=== PATIENT | male | born 1955 | race Asian ===

== ENCOUNTER 2020-02-29 11:31 | Emergency (ER) | payer MEDICAID ==
[~2020-02-29] VITALS: Ht 177.8 cm; Wt 72.6 kg
[2020-02-29 11:31] VITALS: BP 121/76
--- NOTE | 2020-02-29 11:31 | NUR ---
ED Nurse Note: Pt BRICE [id number] from home c/o dizziness onset this AM. Per EMS, pt feels everything around him is moving/ spinning. Pt has hx of vertigo. AAOx4, verbally responsive. No SOB. ERMD at bedside.
[2020-02-29] MEDS ORDERED: Meclizine 25mg tab ORAL ONE (11:45)
--- NOTE | 2020-02-29 11:55 | Emergency Room Report ---
History of Present Illness General Chief Complaint: Dizziness Source: Patient, EMS (Shyam Marcus MD) Present Illness HPI 64-year-old male history of hypertension hyperlipidemia presents with intermittent signs and symptoms of vertigo ongoing for the past few weeks, acutely worsened over the past 3 days, patient every time he tilts his head starts feeling dizzy and feels violent it acutely worsened this morning, endorses some nausea no chest pain no weakness no facial droop no shortness of breath no fevers no chills patient presents for evaluation and treatment he states staying still helps with the vertigo and dizziness, but movement of the h ead can exacerbate it severity is moderate, intermittent (Shyam Marcus MD) Allergies: Coded Allergies: No Known Allergies (Unverified , 02/29/20) COVID-19 Screening Contact w/high risk pt: No Experienced COVID-19 symptoms?: No COVID-19 Testing performed HOT MOLDER: No (Shyam Marcus MD) Patient History Past Medical History: see triage record Reviewed Nursing Documentation: PMH: Agreed; PSxH: Agreed (Shyam Marcus MD) Nursing Documentation-PMH Hx Hypertension: Yes - VERTIGO Hx Diabetes: Yes (Shyam Marcus MD) Review of Systems All Other Systems: negative except mentioned in HPI (Shyam Marcus MD) Physical Exam Vital Signs Date Time Temp Pulse Resp B/P (MAP) Pulse Ox O2 Delivery O2 Flow Rate FiO2 02/29/20 11:21 98.6 76 18 121/76 (91) 100 Room Air Sp02 EP Interpretation: reviewed, normal General Appearance: well appearing, no apparent distress, alert Head: normocephalic, atraumatic Eyes: bilateral eye PERRL, bilateral eye EOMI ENT: uvula midline, moist mucus membranes Neck: supple, thyroid normal, supple/symm/no masses Respiratory: lungs clear, no respiratory distress, no retraction, no accessory muscle use Cardiovascular #1: normal peripheral pulses, regular rate, rhythm, no edema, no gallop, no murmur Gastrointestinal: non tender, soft, no guarding, no rebound Musculoskeletal: normal inspection Neurologic: alert, motor strength/tone normal, oriented x3, other - Cranial nerves II through XII intact, fatigable nystagmus to the left Psychiatric: mood/affect normal Skin: no rash, warm/dry (Shyam Marcus MD) Medical Decision Making Diagnostic Impression: Primary Impression: Dizziness Additional Impressions: Anemia Qualified Codes: D64.9 - Anemia, unspecified CKD (chronic kidney disease) Old lacunar stroke without late effect ER Course 64-year-old male presents with intermittent dizziness differential diagnosis includes vertigo, presyncope, posterior stroke MRI ordered, CT scan negative for acute intracranial pathology MRI pending labs remarkable for anemia which could be chronic patient currently follows up with [facility] additionally patient has an KEVEN which may actually be CKD given patient's age MRI pending patient signed out to Dr. Lambert Laboratory Tests Test 02/29/20 12:00 02/29/20 14:00 White Blood Count 6.9 K/UL (4.8-10.8) Red Blood Count 2.74 M/UL (4.70-6.10) L Hemoglobin 9.6 G/DL (14.2-18.0) L Hematocrit 29.0 % (42.0-52.0) L Mean Corpuscular Volume 106 FL (80-99) H Mean Corpuscular Hemoglobin 35.0 PG (27.0-31.0) H Mean Corpuscular Hemoglobin Concent 33.0 G/DL (32.0-36.0) Red Cell Distribution Width 12.1 % (11.6-14.8) Platelet Count 206 K/UL (150-450) Mean Platelet Volume 6.8 FL (6.5-10.1) Neutrophils (%) (Auto) 69.1 % (45.0-75.0) Lymphocytes (%) (Auto) 18.3 % (20.0-45.0) L Monocytes (%) (Auto) 8.6 % (1.0-10.0) Eosinophils (%) (Auto) 3.1 % (0.0-3.0) H Basophils (%) (Auto) 1.0 % (0.0-2.0) Prothrombin Time 10.6 SEC (9.30-11.50) Prothrombin Time INR 1.0 (0.9-1.1) Activated Partial Thromboplast Time 24 SEC (23-33) Sodium Level 135 MMOL/L (136-145) L Potassium Level 5.0 MMOL/L (3.5-5.1) Chloride Level 104 MMOL/L (98-107) Carbon Dioxide Level 19 MMOL/L (21-32) L Anion Gap 12 mmol/L (5-15) Blood Urea Nitrogen 38 mg/dL (7-18) H Creatinine 2.8 MG/DL (0.55-1.30) H Estimated Glomerular Filtration Rate 23.0 mL/min (>60) Glucose Level 119 MG/DL (74-106) H Calcium Level 7.8 MG/DL (8.5-10.1) L Total Bilirubin 0.3 MG/DL (0.2-1.0) Aspartate Amino Transferase (AST) 42 U/L (15-37) H Alanine Aminotransferase (ALT) 23 U/L (12-78) Alkaline Phosphatase 203 U/L (46-116) H Troponin I 0.002 ng/mL (0.000-0.056) Pro-B-Type Natriuretic Peptide 1982 pg/mL (0-125) H Total Protein 6.8 G/DL (6.4-8.2) Albumin 2.8 G/DL (3.4-5.0) L Globulin 4.0 g/dL Albumin/Globulin Ratio 0.7 (1.0-2.7) L Urine Color Pending Urine Appearance Pending Urine pH Pending Urine Specific [place] Pending Urine Protein Pending Urine Glucose (UA) Pending Urine Ketones Pending Urine Blood Pending Urine Nitrite Pending Urine Bilirubin Pending Urine Urobilinogen Pending Urine Leukocyte Esterase Pending Microbiology Date/Time Source Procedure Growth Status 02/29/20 12:00 Nasopharynx SARS-CoV-2 RdRp Gene Assay - Final Complete (Shyam Marcus MD) ER Course Assumed care of the patient from the previous provider at approximately 1500 hrs. Please refer to initial note for full history and physical exam. Briefly, 64-year-old male history of CKD, BPH, hypertension, hyperlipidemia presents for evaluation of sudden onset dizziness. Information obtained from patient through the use of a Urdu director of services. Patient was treated with meclizine and symptoms are now resolved. Labs show chronic renal failure which the patient states he is aware of and being followed by his doctors at [facility]. Chronic anemia as well. CT scan of the head was unremarkable at time of signout we were awaiting MRI results. MRI showed an old lacunar stroke but no acute findings. Patient believes he has had a stroke in the past. His symptoms are now resolved. His presentation today is more consistent with BPPV as opposed to an acute intracranial process. He is requesting a prescription for meclizine and to follow-up with his PMD at [facility]. I believe this is reasonable and the patient is stable for outpatient follow-up. Copies of his labs, CT and MRI reports were provided as well as prescription for meclizine. I instructed him to return to the hospital with new or worsening symptoms. Laboratory Tests Test 02/29/20 12:00 02/29/20 14:00 White Blood Count 6.9 K/UL (4.8-10.8) Red Blood Count 2.74 M/UL (4.70-6.10) L Hemoglobin 9.6 G/DL (14.2-18.0) L Hematocrit 29.0 % (42.0-52.0) L Mean Corpuscular Volume 106 FL (80-99) H Mean Corpuscular Hemoglobin 35.0 PG (27.0-31.0) H Mean Corpuscular Hemoglobin Concent 33.0 G/DL (32.0-36.0) Red Cell Distribution Width 12.1 % (11.6-14.8) Platelet Count 206 K/UL (150-450) Mean Platelet Volume 6.8 FL (6.5-10.1) Neutrophils (%) (Auto) 69.1 % (45.0-75.0) Lymphocytes (%) (Auto) 18.3 % (20.0-45.0) L Monocytes (%) (Auto) 8.6 % (1.0-10.0) Eosinophils (%) (Auto) 3.1 % (0.0-3.0) H Basophils (%) (Auto) 1.0 % (0.0-2.0) Prothrombin Time 10.6 SEC (9.30-11.50) Prothrombin Time INR 1.0 (0.9-1.1) Activated Partial Thromboplast Time 24 SEC (23-33) Sodium Level 135 MMOL/L (136-145) L Potassium Level 5.0 MMOL/L (3.5-5.1) Chloride Level 104 MMOL/L (98-107) Carbon Dioxide Level 19 MMOL/L (21-32) L Anion Gap 12 mmol/L (5-15) Blood Urea Nitrogen 38 mg/dL (7-18) H Creatinine 2.8 MG/DL (0.55-1.30) H Estimated Glomerular Filtration Rate 23.0 mL/min (>60) Glucose Level 119 MG/DL (74-106) H Calcium Level 7.8 MG/DL (8.5-10.1) L Total Bilirubin 0.3 MG/DL (0.2-1.0) Aspartate Amino Transferase (AST) 42 U/L (15-37) H Alanine Aminotransferase (ALT) 23 U/L (12-78) Alkaline Phosphatase 203 U/L (46-116) H Troponin I 0.002 ng/mL (0.000-0.056) Pro-B-Type Natriuretic Peptide 1982 pg/mL (0-125) H Total Protein 6.8 G/DL (6.4-8.2) Albumin 2.8 G/DL (3.4-5.0) L Globulin 4.0 g/dL Albumin/Globulin Ratio 0.7 (1.0-2.7) L Urine Color Pale yellow Urine Appearance Clear Urine pH 5 (4.5-8.0) Urine Specific [place] 1.005 (1.005-1.035) Urine Protein 1+ (NEGATIVE) H Urine Glucose (UA) Negative (NEGATIVE) Urine Ketones Negative (NEGATIVE) Urine Blood Negative (NEGATIVE) Urine Nitrite Negative (NEGATIVE) Urine Bilirubin Negative (NEGATIVE) Urine Urobilinogen Normal MG/DL (0.0-1.0) Urine Leukocyte Esterase 2+ (NEGATIVE) H Urine RBC 0 /HPF (0 - 0) Urine WBC 5-10 /HPF (0 - 0) H Urine Squamous Epithelial Cells Occasional /LPF Urine Bacteria None /HPF (NONE) Microbiology Date/Time Source Procedure Growth Status 02/29/20 12:00 Nasopharynx SARS-CoV-2 RdRp Gene Assay - Final Complete (Luis Lambert MD) EKG Diagnostic Results Troponin ordered: Yes When was troponin ordered?: Feb 29, 2020 EKG Time: 11:44 EP Interpretation: NSR, rate 76, QTc 452, no acute ST elevations, normal axis (Shyam Marcus MD) Rhythm Strip Diag. Results Rhythm Strip Time: 11:56 EP Interpretation: yes Rate: 78 Rhythm: NSR, no PVC's, no ectopy (Shyam Marcus MD) Chest X-Ray Diagnostic Results Chest X-Ray Diagnostic Results : Chest X-Ray Ordered: Yes # of Views/Limited/Complete: 1 View Indication: Chest Pain EP Interpretation: Yes Interpretation: no consolidation, no effusion, no pneumothorax, no acute cardiopulmonary disease Impression: No acute disease Electronically Signed by: Shyam Marcus MD (Shyam Marcus MD) CT/MRI/US Diagnostic Results CT/MRI/US Diagnostic Results : Impression Procedure: CT Head no Contrast Indication: Vertigo Technique: spiral acquisitions obtained through the brain. Angled axial and coronal 5 x 5 mm slices were reconstructed. No IV contrast utilized. Radiation dose was minimized using automated exposure control Total dose length product 1152 mGycm. CTDIvol(s) 50 mGy Comparison: none FINDINGS: No acute hemorrhage or edema. No mass effect or midline shift. There is age-related enlargement of the ventricles and extra axial CSF spaces. There is periventricular deep white matter ischemic change. Normal galvan-white differentiation. Visualized orbits are unremarkable. Visualized sinuses are unremarkable. Intact calvarium. There is an old left basal ganglia lacunar infarct IMPRESSION: Chronic and age-related changes. Negative for acute intracranial bleed or mass effect The CT scanner at [facility] is accredited by the [employer] and the scans are performed using protocols designed to limit radiation exposure to as low as reasonably achievable to attain images of sufficient resolution adequate for diagnostic evaluation Dictated By: Shravan Bryan MD Electronically Signed By:Shravan Bryan MD Signed Date/Time02/29/20 1412 CC: Shyam Marcus [id number] 0 (Shyam Marcus MD) CT/MRI/US Diagnostic Results : Impression MRI Impression: Mild chronic age-related changes Old left melgar radiata lacunar infarct Negative for acute intracranial bleed, mass effect, or acute infarct Sinus disease Dictated By: Shravan Bryan MD Electronically Signed By:Shravan Bryan MD Signed Date/Time02/29/20 1448 CC: Shyam Marcus [id number] 0 (Luis Lambert MD) Last Vital Signs Date Time Temp Pulse Resp B/P (MAP) Pulse Ox O2 Delivery O2 Flow Rate FiO2 02/29/20 11:31 76 18 Room Air 02/29/20 11:31 98.6 121/76 100 (Shyam Marcus MD) Disposition: HOME, SELF-CARE Condition: Stable Scripts Meclizine Hcl* (MECLIZINE*) 25 Mg Tablet 25 MG ORAL THREE TIMES A DAY for 5 Days, #30 TAB Prov: Luis Lambert MD 02/29/20 Shyam Marcus MD Feb 29, 2020 11:55 Luis Lambert MD Feb 29, 2020 16:05
[2020-02-29 12:26] LABS: EOSINOPHILS % (AUTO) 3.1 % (0.0-3.0); HEMOGLOBIN 9.6 G/DL (14.2-18.0); LYMPHOCYTES % (AUTO) 18.3 % (20.0-45.0); MEAN CORPUSCULAR VOLUME 106 FL (80-99); MONOCYTES % (AUTO) 8.6 % (1.0-10.0); NEUTROPHILS % (AUTO) 69.1 % (45.0-75.0); PLATELET COUNT 206 K/UL (150-450); RED BLOOD COUNT 2.74 M/UL (4.70-6.10); RED CELL DISTRIBUTION WIDTH 12.1 % (11.6-14.8); WHITE BLOOD COUNT 6.9 K/UL (4.8-10.8)
[2020-02-29 12:33] LABS: CALCIUM 7.8 MG/DL (8.5-10.1); CREATININE 2.8 MG/DL (0.55-1.30)
[2020-02-29 12:44] LABS: ALBUMIN 2.8 G/DL (3.4-5.0); ALBUMIN/GLOBULIN RATIO 0.7 (1.0-2.7); BILIRUBIN,TOTAL 0.3 MG/DL (0.2-1.0)
--- NOTE | 2020-02-29 14:17 | Diagnostic Imaging Report ---
Indication: Vertigo Technique: spiral acquisitions obtained through the brain. Angled axial and coronal 5 x 5 mm slices were reconstructed. No IV contrast utilized. Radiation dose was minimized using automated exposure control Total dose length product 1152 mGycm. CTDIvol(s) 50 mGy Comparison: none FINDINGS: No acute hemorrhage or edema. No mass effect or midline shift. There is age-related enlargement of the ventricles and extra axial CSF spaces. There is periventricular deep white matter ischemic change. Normal galvan-white differentiation. Visualized orbits are unremarkable. Visualized sinuses are unremarkable. Intact calvarium. There is an old left basal ganglia lacunar infarct IMPRESSION: Chronic and age-related changes. Negative for acute intracranial bleed or mass effect The CT scanner at [facility] is accredited by the [employer] and the scans are performed using protocols designed to limit radiation exposure to as low as reasonably achievable to attain images of sufficient resolution adequate for diagnostic evaluation
[2020-02-29 14:26] LABS: APPEARANCE,URINE CLEAR; BILIRUBIN, URINE NEGATIVE (NEGATIVE); COLOR,URINE PALE YELLOW; GLUCOSE, URINE (UA) NEGATIVE (NEGATIVE); KETONES,URINE NEGATIVE (NEGATIVE); LEUKOCYTE ESTERASE ,URINE 2+ (NEGATIVE); NITRITE,URINE NEGATIVE (NEGATIVE); PH,URINE 5 (4.5-8.0); PROTEIN,URINE 1+ (NEGATIVE); UROBILINOGEN,URINE NORMAL MG/DL (0.0-1.0)
--- NOTE | 2020-02-29 14:53 | Diagnostic Imaging Report ---
Indication: Vertigo, worsening over the past 3 days Technique: sagittal T1 fast spin echo, axial T1 FLAIR, axial T2 FLAIR, axial T2 FS PROPELLER, axial T2* GRE, axial diffusion weighted images. ADC and exponential ADC maps generated Comparison: none Findings: To the extent visualized, the middle ear structures appear unremarkable. No abnormal areas of restricted diffusion to suggest acute infarction. No acute hemorrhage or edema. No mass effect nor midline shift. There is an old lacunar infarct in the left melgar radiata.. There is mild age-related enlargement of the ventricles and extra axial CSF spaces. There is minimal periventricular high T2 signal. Visualized orbits are unremarkable. There is minimal bilateral maxillary sinus mucosal disease. The vascular flow voids are preserved. Impression: Mild chronic age-related changes Old left melgar radiata lacunar infarct Negative for acute intracranial bleed, mass effect, or acute infarct Sinus disease
[2020-02-29 15:20] VITALS: BP 125/78
--- NOTE | 2020-02-29 15:34 | Diagnostic Imaging Report ---
Indication: Shortness of breath Technique: One view of the chest Comparison: none Findings: Lungs and pleural spaces are clear. Heart size is normal. Impression: No acute process
[2020-02-29] MEDS ORDERED: MECLIZINE HCL25 MG ORAL (16:01)
[2020-02-29 16:10] VITALS: BP 125/78
--- NOTE | 2020-03-03 06:20 | Cardiology Report ---
APPROVED REPORT EKG Measurement Heart [id number] <Conclusion> Sinus rhythm with 1st degree AV block Left axis deviation Nonspecific ST abnormality Abnormal ECG
== END 2020-02-29 16:10 | disposition home or self-care (01) ==
LOC: EDBD 11:31 → EMR 11:54
DX: R42 Dizziness and giddiness (principal); D64.9 Anemia, unspecified; E11.22 Type 2 diabetes mellitus with diabetic chronic kidney disease; I12.9 Hypertensive chronic kidney disease with stage 1 through stage 4 chronic kidney disease, or unspecified chronic kidney disease; N18.9 Chronic kidney disease, unspecified; D63.1 Anemia in chronic kidney disease; E78.5 Hyperlipidemia, unspecified; Z86.73 Personal history of transient ischemic attack (TIA), and cerebral infarction without residual deficits
CPT/HCPCS: 36415; 70450; 70551; 71045; 80053; 81003; 83880; 84484; 85025; 85610; 85730; 93005; J7040; U0002; Z7502; 99284